=== PATIENT | female | born 1965 | race Two or more races ===

== ENCOUNTER 2017-11-27 15:18 | Outpatient (CLI) | payer OTHER | END 2017-11-27 15:44 | disposition home or self-care (01) | LOC: MAMO-SONO 15:18 | DX: Z12.31 Encounter for screening mammogram for malignant neoplasm of breast (principal) ==

== ENCOUNTER 2018-04-02 10:45 | Outpatient (CLI) | payer OTHER | END 2018-04-02 10:56 | disposition home or self-care (01) | LOC: NUCLEAR 10:45 | DX: M85.89 Other specified disorders of bone density and structure, multiple sites (principal) ==

== ENCOUNTER 2018-10-25 20:37 | Emergency (ER) | payer OTHER ==
[~2018-10-25] VITALS: Ht 160 cm; Wt 58.1 kg
[2018-10-25] MEDS ORDERED: NICAZEL TABLET1 EACH (20:55)
[2018-10-25] MEDS ORDERED: SYNTHROID75 MCG (20:55)
[2018-10-25] MEDS ORDERED: MAGNESIUM100 MG (20:55)
== END 2018-10-25 23:54 | disposition home or self-care (01) ==
LOC: ER 20:37
DX: R10.84 Generalized abdominal pain (principal)

== ENCOUNTER 2018-12-31 14:27 | Outpatient (CLI) | payer OTHER ==
[~2018-12-31 14:27] MED LIST: MAGNESIUM100 MG; NICAZEL TABLET1 EACH; SYNTHROID75 MCG
== END 2018-12-31 14:36 | disposition home or self-care (01) ==
LOC: MAMO-SONO 14:27
DX: Z12.31 Encounter for screening mammogram for malignant neoplasm of breast (principal); Z87.898 Personal history of other specified conditions; N60.11 Diffuse cystic mastopathy of right breast; N60.12 Diffuse cystic mastopathy of left breast

== ENCOUNTER 2019-03-25 18:25 | Outpatient (CLI) | payer OTHER | END 2019-03-25 18:47 | disposition home or self-care (01) | LOC: RAD 18:25 | DX: M25.512 Pain in left shoulder (principal); M25.522 Pain in left elbow ==

== ENCOUNTER → 2019-04-01 | Outpatient (CLI) | payer OTHER | END | disposition home or self-care (01) | LOC: RAD 14:14 | DX: M54.2 Cervicalgia (principal); E55.9 Vitamin D deficiency, unspecified; I11.9 Hypertensive heart disease without heart failure ==

== ENCOUNTER 2019-04-22 10:57 | Outpatient (CLI) | payer OTHER | END 2019-04-22 11:30 | disposition home or self-care (01) | LOC: NUCLEAR 10:57 | DX: M81.0 Age-related osteoporosis without current pathological fracture (principal); M85.9 Disorder of bone density and structure, unspecified ==

== ENCOUNTER 2020-01-13 13:40 | Outpatient (CLI) | payer OTHER | END 2020-01-13 13:48 | disposition home or self-care (01) | LOC: MAMO-SONO 13:40 | PROVIDERS: ATTEND Obstetrics & Gynecology | DX: Z12.31 Encounter for screening mammogram for malignant neoplasm of breast (principal); N60.11 Diffuse cystic mastopathy of right breast; N60.12 Diffuse cystic mastopathy of left breast ==

== ENCOUNTER 2021-02-15 11:40 | Outpatient (CLI) | payer OTHER | END 2021-02-15 15:00 | disposition home or self-care (01) | LOC: LAB 11:40 | DX: E03.8 Other specified hypothyroidism (principal); E78.00 Pure hypercholesterolemia, unspecified; N91.2 Amenorrhea, unspecified; E78.49 Other hyperlipidemia; E34.8 Other specified endocrine disorders; N95.1 Menopausal and female climacteric states; E23.6 Other disorders of pituitary gland; R19.00 Intra-abdominal and pelvic swelling, mass and lump, unspecified site; N39.0 Urinary tract infection, site not specified; E55.9 Vitamin D deficiency, unspecified; N73.8 Other specified female pelvic inflammatory diseases; A60.04 Herpesviral vulvovaginitis; Z34.90 Encounter for supervision of normal pregnancy, unspecified, unspecified trimester; Z20.828 Contact with and (suspected) exposure to other viral communicable diseases ==

== ENCOUNTER → 2021-02-22 | Outpatient (CLI) | payer OTHER | END | disposition home or self-care (01) | LOC: NUCLEAR 13:15 | DX: M81.0 Age-related osteoporosis without current pathological fracture (principal); Z13.820 Encounter for screening for osteoporosis ==

== ENCOUNTER 2021-02-24 11:24 | Outpatient (CLI) | payer OTHER | END 2021-02-24 11:41 | disposition home or self-care (01) | LOC: LAB 11:24 | DX: E03.8 Other specified hypothyroidism (principal); E55.9 Vitamin D deficiency, unspecified; E78.00 Pure hypercholesterolemia, unspecified; Z11.3 Encounter for screening for infections with a predominantly sexual mode of transmission; Z12.11 Encounter for screening for malignant neoplasm of colon ==

== ENCOUNTER 2021-11-08 12:41 | Outpatient (CLI) | payer OTHER | END 2021-11-08 12:50 | disposition home or self-care (01) | LOC: MAMO-SONO 12:41 | PROVIDERS: ATTEND Obstetrics & Gynecology | DX: N63.11 Unspecified lump in the right breast, upper outer quadrant (principal); N63.12 Unspecified lump in the right breast, upper inner quadrant ==

== ENCOUNTER 2021-11-22 15:19 | Outpatient (CLI) | payer OTHER | END 2021-11-22 15:31 | disposition home or self-care (01) | LOC: RAD 15:19 | PROVIDERS: ATTEND Orthopaedic Surgery | DX: M79.642 Pain in left hand (principal) ==

== ENCOUNTER 2021-12-06 13:32 | Outpatient (CLI) | payer OTHER | END 2021-12-06 13:41 | disposition home or self-care (01) | LOC: NUCLEAR 13:32 | PROVIDERS: ATTEND Orthopaedic Surgery | DX: M81.0 Age-related osteoporosis without current pathological fracture (principal); Z88.8 Allergy status to other drugs, medicaments and biological substances ==

== ENCOUNTER → 2022-10-03 | Outpatient (CLI) | payer OTHER | END | disposition home or self-care (01) | LOC: RAD 15:12 | PROVIDERS: ATTEND Internal Medicine | DX: M54.17 Radiculopathy, lumbosacral region (principal) ==

== ENCOUNTER 2023-02-06 15:29 | Outpatient (CLI) | payer OTHER | END 2023-02-06 15:34 | disposition home or self-care (01) | LOC: RAD 15:29 | PROVIDERS: ATTEND Internal Medicine | DX: M54.2 Cervicalgia (principal); I11.9 Hypertensive heart disease without heart failure; E55.9 Vitamin D deficiency, unspecified; M81.8 Other osteoporosis without current pathological fracture ==

== ENCOUNTER 2023-02-13 14:34 | Outpatient (CLI) | payer OTHER | END 2023-02-19 08:47 | disposition home or self-care (01) | LOC: MAMO-SONO 14:34 | PROVIDERS: ATTEND Internal Medicine | DX: N64.4 Mastodynia (principal); R92.8 Other abnormal and inconclusive findings on diagnostic imaging of breast; Z12.31 Encounter for screening mammogram for malignant neoplasm of breast ==

== ENCOUNTER 2024-01-22 13:03 | Outpatient (CLI) | payer OTHER | END 2024-01-22 13:10 | disposition home or self-care (01) | LOC: RAD 13:03 | PROVIDERS: ATTEND Internal Medicine | DX: M54.2 Cervicalgia (principal) ==

== ENCOUNTER → 2024-03-18 | Outpatient (CLI) | payer OTHER | END | disposition home or self-care (01) | LOC: MAMO-SONO 11:06 | DX: N63.10 Unspecified lump in the right breast, unspecified quadrant (principal); N63.20 Unspecified lump in the left breast, unspecified quadrant ==

== ENCOUNTER 2024-07-22 13:41 | Outpatient (CLI) | payer OTHER | END 2024-07-22 13:46 | disposition home or self-care (01) | LOC: RAD 13:41 | PROVIDERS: ATTEND Orthopaedic Surgery | DX: M79.642 Pain in left hand (principal); M79.645 Pain in left finger(s) ==

== ENCOUNTER 2024-07-29 14:42 | Outpatient (CLI) | payer OTHER | END 2024-07-29 14:55 | disposition home or self-care (01) | LOC: RAD 14:42 | PROVIDERS: ATTEND Orthopaedic Surgery | DX: M79.645 Pain in left finger(s) (principal) ==

== ENCOUNTER → 2024-12-02 11:54 | Outpatient (CLI) | payer OTHER | END | disposition home or self-care (01) | LOC: NUCLEAR 11:30 | PROVIDERS: ATTEND Orthopaedic Surgery | DX: M81.0 Age-related osteoporosis without current pathological fracture (principal) ==

== ENCOUNTER 2025-03-17 11:57 | Outpatient (CLI) | payer OTHER | END 2025-03-17 12:03 | disposition home or self-care (01) | LOC: RAD 11:57 | PROVIDERS: ATTEND Orthopaedic Surgery | DX: M79.645 Pain in left finger(s) (principal); M79.642 Pain in left hand ==

== ENCOUNTER 2025-04-25 06:09 | Emergency (ER) | payer OTHER ==
[~2025-04-25] VITALS: Ht 160 cm; Wt 59.0 kg
[2025-04-25] MEDS ORDERED: COZAAR100 MG PO (07:32)
[2025-04-25] MEDS ORDERED: ACETAMINOPHEN 500 MG GEL..CAP PO ONE (08:00)
[2025-04-25] MEDS ORDERED: DEXAMETHASONE SODIUM PHOSPHATE 4 MG/ML VIAL IM ONE (08:00)
[2025-04-25 08:19] LABS: BASO % 0.5 % (0.1-1.2); EOS # 0.15 (0.04-0.54); EOS % 2.7 % (0.7-7.0); LYMPH # 1.22 (1.18-3.74); LYMPH % 21.9 % (19.3-53.1); MEAN PLATELET VOLUME 11.40 fl (9.4-12.4); MONO # 0.97 (0.24-0.82); NEUT # 3.19 (1.56-6.13); NEUT % 57.1 % (34.0-71.1); RED CELL DISTRIBUTION WIDTH 13.5 % (11.6-14.4)
[2025-04-25 08:23] LABS: MONO % 17.4 % (4.7-12.5)
[2025-04-25 09:35] LABS: COVID-19 AG NEGATIVE (NEGATIVE)
== END 2025-04-25 09:58 | disposition home or self-care (01) ==
LOC: ER 06:10
PROVIDERS: General Practice
DX: J02.8 Acute pharyngitis due to other specified organisms (principal); Z20.822 Contact with and (suspected) exposure to COVID-19; Z88.6 Allergy status to analgesic agent; I10 Essential (primary) hypertension; E03.9 Hypothyroidism, unspecified